=== PATIENT | male | born 1950 | race Caucasian/White ===

== ENCOUNTER 2019-05-16 16:45 | Emergency (ER) | payer OTHER, MEDICARE ==
[~2019-05-16] VITALS: Ht 177.8 cm; Wt 83.1 kg
[2019-05-16 16:58] VITALS: BP 117/73
[2019-05-16] MEDS ORDERED: DICL100G18 TP (17:12)
--- NOTE | 2019-05-16 17:12 | PHYS DOC ---
Adult General Chief Complaint Chief Complaint: LOWER EXT PAIN HPI HPI Patient is a 69 year old male who presents with hx of arthritis among other illnesses who presents the ED today complaining of joint pain in his shoulder, right upper extremity, right knee, right ankle, everything to the right side as well as left knee per his statement, symptoms began 2 weeks ago though he reports has had this symptoms before was seen at the [facility], was given pain injection and was told he has arthritis. He states during his recent visit to the [facility] 2 weeks ago they told him he needed to be given pain medicine and be discharged because of coronavirus they did not want him hanging out in the hospital any longer. Patient denies any injury. Describes the pain as sharp and constant worse on range of motion. Rates the pain as mild to moderate worse today. Review of Systems Review of Systems Constitutional: Denies fever or chills [] : Denies dysuria or hematuria [] Musculoskeletal: Right side pain from shoulder to ankle and left knee Integument: Denies rash or skin lesions [] Neurologic: Denies headache, focal weakness or sensory changes [] All other systems were reviewed and found to be within normal limits, except as documented in this note. Current Medications Current Medications Current Medications Medications (Trade) Dose Ordered Sig/Monica Start Time Stop Time Status Last Admin Dose Admin Methylprednisolone Sodium Succinate (SOLU-Medrol 125MG VIAL) 125 mg 1X ONCE 05/16/19 17:15 05/16/19 17:16 Morphine Sulfate (Morphine Sulfate) 5 mg 1X ONCE 05/16/19 17:15 05/16/19 17:16 Allergies Allergies Allergies Coded Allergies Type Severity Reaction Last Updated Verified No Known Drug Allergies 05/16/19 No Physical Exam Physical Exam Constitutional: Well developed, well nourished, no acute distress, non-toxic appearance. [] Skin: Warm, dry, no erythema, no rash. [] Back: No tenderness, no CVA tenderness. [] Extremities: No tenderness, no cyanosis, no clubbing, ROM intact, no edema. [] Neurologic: Alert and oriented X 3, normal motor function, normal sensory function, no focal deficits noted. [] Psychologic: Affect normal, judgement normal, mood normal. [] EKG EKG [] Radiology/Procedures Radiology/Procedures [] Course & Med Decision Making Course & Med Decision Making Pertinent Labs and Imaging studies reviewed. (See chart for details) This is a 69-year-old male patient who presents to the ED today complaining of arthritis pain to his right side as well as left knee. Symptoms appear chronic but worse in the last 2 weeks. Pain management done in the ED and discharged with instructions to follow-up with his own doctor at the [facility]. Joy Disclaimer Joy Disclaimer This electronic medical record was generated, in whole or in part, using a voice recognition dictation system. Departure Departure Impression: Primary Impression: Arthritic-like pain Disposition: HOME, SELF-CARE Condition: STABLE Referrals: UNKNOWN PCP NAME (PCP) follow up with your doctor at the [facility] as soon as you can Patient Instructions: Arthritis, Degenerative-Brief Additional Instructions: Please follow up with your own doctor in the course of this week. Scripts Diclofenac Sodium (VOLTAREN) 100 Gm Gel..gram. 1 GM TP TID for pain for 30 Days, #1 EACH 0 Refills apply to affected area(s) Prov: KATRIN MCGRATH APRN 05/16/19 Problem Qualifiers Primary Impression: Arthritic-like pain Joint pain location: unspecified Qualified Codes: M25.50 - Pain in unspecified joint KATRIN MCGRATH APRN May 16, 2019 17:12
[2019-05-16] MEDS ORDERED: methylPREDNISolone SOD SUCC PF 125 MG/2 ML VIAL. IM ONE (17:15)
[2019-05-16] MEDS ORDERED: MORPHINE SULFATE 10 MG/ML VIAL. IM ONE (17:15)
[2019-05-16] MEDS ORDERED: fentaNYL PF VIAL 100 MCG/2 ML VIAL ONE (17:22)
[2019-05-16] MEDS ORDERED: fentaNYL PF VIAL 100 MCG/2 ML VIAL IM ONE (17:30)
== END 2019-05-16 17:37 | disposition home or self-care (01) ==
LOC: ER 16:45
DX: M25.511 Pain in right shoulder (principal); M25.562 Pain in left knee
CPT/HCPCS: 96372; 99284; J2930; J3010